=== PATIENT | male | born 1960 | race Caucasian/White ===

== ENCOUNTER 2023-01-12 15:11 | Outpatient (CLI) | payer OTHER | END 2023-01-12 15:12 | disposition home or self-care (01) | LOC: BURRAD 15:11 | PROVIDERS: ATTEND Family Medicine | DX: R91.1 Solitary pulmonary nodule (principal) | CPT/HCPCS: 71046 ==

== ENCOUNTER 2023-01-20 09:07 | Outpatient (CLI) | payer OTHER ==
[2023-01-20] MEDS ORDERED: Iopamidol 370 76% 100 ML VIAL ONE (11:07)
== END 2023-01-20 09:08 | disposition home or self-care (01) ==
LOC: BURCT 09:07
PROVIDERS: ATTEND Family Medicine
DX: Z01.818 Encounter for other preprocedural examination (principal); J98.4 Other disorders of lung; R91.8 Other nonspecific abnormal finding of lung field
CPT/HCPCS: 71260; 82565; Q9967